=== PATIENT | female | born 1965 | race Caucasian/White ===

== ENCOUNTER 2017-12-05 09:25 | Outpatient (CLI) | payer BC, OTHER ==
[2017-12-05 10:28] LABS: eGFR (African) > 60; eGFR (Non-African) > 60
== END 2017-12-05 09:26 ==
LOC: LAB 09:25
PROVIDERS: ATTEND Family Medicine
DX: I10 Essential (primary) hypertension (principal)
CPT/HCPCS: 36415; 80053; 80061

== ENCOUNTER 2018-01-15 09:36 | Outpatient (CLI) | payer OTHER | END 2018-01-15 09:38 | LOC: CARD 09:36 | PROVIDERS: ATTEND Internal Medicine Cardiovascular Disease | DX: I35.0 Nonrheumatic aortic (valve) stenosis (principal); I10 Essential (primary) hypertension; E78.5 Hyperlipidemia, unspecified; E66.9 Obesity, unspecified; R94.39 Abnormal result of other cardiovascular function study | CPT/HCPCS: 99213 ==

== ENCOUNTER 2018-07-22 13:28 | Outpatient (CLI) | payer BC ==
[2018-07-22 13:55] LABS: BASOPHILS % 1.2 % (0.0-1.5); EOSINOPHILS % 2.1 % (0.0-6.8); MEAN CORPUSCULAR HEMOGLOBIN 31.3 pg (28.0-34.0); MONOCYTES % 3.6 % (0.0-11.0); NEUTROPHILS # 4.8 # k/uL (1.4-7.7)
[2018-07-22 14:10] LABS: eGFR (Non-African) > 60
== END 2018-07-22 13:30 ==
LOC: LAB 13:28
PROVIDERS: ATTEND Family Medicine
DX: E78.2 Mixed hyperlipidemia (principal); R53.1 Weakness
CPT/HCPCS: 36415; 80053; 80061; 82550; 82553; 85025

== ENCOUNTER 2018-08-26 07:22 | Day surgery (SDC) | payer BC ==
[2018-08-26] MEDS ORDERED: PREGNANCY TEST KIT 1 EACH KIT MC ONE (07:59)
[2018-08-26] MEDS ORDERED: LIDOCAINE HCL 2% PF 100MG/5ML VIAL IJ ONE (08:48)
[2018-08-26] MEDS ORDERED: LACTATED RINGERS 1,000 ML IV.SOLN IV ONE (08:48)
[2018-08-26] MEDS ORDERED: PROPOFOL 200 MG/20 ML VIAL IV ONE (08:48)
--- NOTE | 2018-11-05 08:53 | GI Report ---
DATE OF PROCEDURE: 08/26/2018 REFERRING PHYSICIAN: Dr. Villafana. SURGEON: Joseph Gil M.D., [email or web address].[email or web address] PROCEDURE PERFORMED: Colonoscopy. INDICATION FOR PROCEDURE: 53-year-old woman referred for screening colonoscopy. Her stools are a little irregular though she did have gallbladder surgery a number of years ago. Her father had lung cancer, grandfather had cancer (not sure where the primary was). Her stools again are a little irregular, sometimes constipation, sometimes diarrhea. Occasionally some blood with the stool. She has never been looked at before. On exam she is 57, weight is 290 and carries that centrally. Lungs: No wheezes. Heart sounds distant. Abdomen soft. PROCEDURE MEDICATION: Propofol, as per Anesthesia. DESCRIPTION OF PROCEDURE: The Olympus video colonoscope was advanced through the rectum. Prep was fair. There still was certain areas of a little residual stool though we were able to maneuver all the way to the cecum. The appendiceal orifice was normal. The ileocecal valve was normal. On slow withdrawal, the cecum, ascending colon no obvious intraluminal lesions noted. Transverse colon: Again, no obvious intraluminal lesions noted. Descending colon, sigmoid: Some redundancy but no obvious intraluminal lesions were noted. Retroflexion in the rectum shows a hemorrhoid. The patient tolerated the procedure well. FINDINGS: 1. Internal hemorrhoid. 2. Atonic, redundant colon. RECOMMENDATIONS: 1. Would add increased fiber in the diet, cut back on carbs that are glycemic. 2. Would add Metamucil, Fibercon or some fiber preparation at bedtime for post cholecystectomy episodes of diarrhea and low lactose milk products. 3. Consider relook at her colon in 10 years, sooner if clinically indicated. JOSEPH GIL M.D., F.A.C.P. MARLI/ashley Job#: [id number] Cc: Dr. Broderick FLEMING
== END 2018-08-26 09:30 ==
LOC: OPSURG 07:22
PROVIDERS: ATTEND Internal Medicine Gastroenterology
DX: R19.5 Other fecal abnormalities (principal); R19.4 Change in bowel habit; K63.89 Other specified diseases of intestine; K64.8 Other hemorrhoids; Z98.890 Other specified postprocedural states; Z80.1 Family history of malignant neoplasm of trachea, bronchus and lung
CPT/HCPCS: 45378; J2001; J2704; J7120